=== PATIENT | male | born 1995 | race Two or more races ===

== ENCOUNTER 2020-04-21 16:55 | Emergency (ER) | payer MEDICAID, OTHER ==
--- NOTE | 2020-04-21 19:23 | EDM.PDOC ---
ED HPI GENERAL MEDICAL PROBLEM - General Chief Complaint: Upper Extremity Injury/Pain Stated Complaint: R HAND INJ Time Seen by Provider: 04/21/20 17:30 Source of Information: Reports: Patient History Limitations: Reports: No Limitations - History of Present Illness INITIAL COMMENTS - FREE TEXT/NARRATIVE: c/o R hand pain not working, playing with 4 yo daughter, she slammed and inside house door on his R hand had previous surgery and injury of wrist XR with nondisplaced fx at 5th MC base into joint without displacement, need for immobilization discussed Right Wrist Pain Score (Numeric/FACES): 6 - Related Data Allergies Allergy/AdvReac Type Severity Reaction Status Date / Time amoxicillin Allergy Rash Verified 04/21/20 17:49 Penicillins Allergy Rash Verified 04/21/20 17:49 Home Meds: Home Meds Dexamethasone/Tobramycin [Tobradex Ophth Susp] 1 drop EYELF DAILY 04/21/20 [History] Erythromycin Base [Erythromycin] 1 gm TOP DAILY 04/21/20 [History] Past Medical History Musculoskeletal History: Reports: Fracture, Other (See Below) Other Musculoskeletal History: Several fractures in the right hand/wrist. Fracture in right ankle. Fractured in five spots in left foot. Back surgery 02/2020. Psychiatric History: Reports: Anxiety - Past Surgical History HEENT Surgical History: Reports: Other (See Below) Other HEENT Surgeries/Procedures: Patient had a cyst removed from left eye. GI Surgical History: Reports: Appendectomy Musculoskeletal Surgical History: Reports: Shoulder Surgery Social & Family History - Family History Family Medical History: Noncontributory - Tobacco Use Smoking Status *Q: Never Smoker - Caffeine Use Caffeine Use: Reports: Coffee - Recreational Drug Use Recreational Drug Use: No Review of Systems - Review of Systems Review Of Systems: See Below Constitutional: Reports: No Symptoms Eyes: Reports: No Symptoms Ears: Reports: No Symptoms Nose: Reports: No Symptoms Mouth/Throat: Reports: No Symptoms Respiratory: Reports: No Symptoms Cardiovascular: Reports: No Symptoms GI/Abdominal: Reports: No Symptoms Genitourinary: Reports: No Symptoms Musculoskeletal: Reports: Hand Pain Skin: Reports: No Symptoms Neurological: Reports: No Symptoms Psychiatric: Reports: No Symptoms ED EXAM, GENERAL - Physical Exam Exam: See Below Exam Limited By: No Limitations General Appearance: Alert, WD/WN, No Apparent Distress Extremities: Other (R hand with increase and 2+ tender at base of 5th MC, carpal bones NT, radius/ulna NT, no ecchymosis) Course - Vital Signs Last Recorded V/S: Last Vital Signs Temp 36.7 C 04/21/20 17:45 Pulse 90 04/21/20 17:45 Resp 16 04/21/20 17:45 BP 126/66 04/21/20 17:45 Pulse Ox 98 04/21/20 17:45 - Orders/Labs/Meds Orders: Active Orders 24 hr Category Date Time Status Hand Comp Min 3V Rt [CR] Stat Exams 04/21/20 16:57 Taken - Re-Assessments/Exams Free Text/Narrative Re-Assessment/Exam: 04/21/20 19:22 short arm splint applied, sling given splint with stockinet, webroll, padded fiberglass and Tulio x 2 (3" and 2") Departure - Departure Time of Disposition: 19:17 Disposition: Home, Self-Care 01 Condition: Good Clinical Impression: Fracture of metacarpal base of right hand, closed Qualifiers: Encounter type: initial encounter Metacarpal bone: fifth Fracture alignment: nondisplaced Qualified Code(s): S62.346A - Nondisplaced fracture of base of fifth metacarpal bone, right hand, initial encounter for closed fracture - Discharge Information *PRESCRIPTION DRUG MONITORING PROGRAM REVIEWED*: Not Applicable *COPY OF PRESCRIPTION DRUG MONITORING REPORT IN PATIENT ERIN: Not Applicable Instructions: Metacarpal Fracture, Cast or Splint Care, Adult Referrals: PCP,None [Primary Care Provider] - Additional Instructions: Keep splint clean and dry. For pain, as needed, take ibuprofen 200 mg 4 tabs 3 times a day. See orthopedic surgeon in 3 days for further recommendations. Sepsis Event Note (ED) - Evaluation Sepsis Screening Result: No Definite Risk - Focused Exam Vital Signs: Vital Signs Temp Pulse Resp BP Pulse Ox 04/21/20 17:45 36.7 C 90 16 126/66 98 - My Orders Last 24 Hours: My Active Orders 04/21/20 16:57 Hand Comp Min 3V Rt [CR] Stat - Assessment/Plan Last 24 Hours: My Active Orders 04/21/20 16:57 Hand Comp Min 3V Rt [CR] Stat
--- NOTE | 2020-04-22 10:49 | CR ---
INDICATION: Injury, pain. RIGHT HAND: Three views of the right hand were obtained 04/21/20 - no comparison. 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 It is difficult to exclude a chip fracture fragment at the ulnar styloid. Additionally at the proximal metaphysis of the fifth metacarpal there is some linear lucency which could represent hairline fracture site. This should be correlated clinically. Reexamination in 10 to 14 days should be of further diagnostic benefit in that regard. MTDD
== END 2020-04-21 19:53 | disposition home or self-care (01) ==
LOC: FB.ED 16:55
DX: S62.346A Nondisplaced fracture of base of fifth metacarpal bone, right hand, initial encounter for closed fracture (principal); Z88.1 Allergy status to other antibiotic agents; Z88.0 Allergy status to penicillin; W23.0XXA Caught, crushed, jammed, or pinched between moving objects, initial encounter
CPT/HCPCS: 29125; 73130-RT; 99282; 99283-25

== ENCOUNTER 2020-09-19 08:15 | Day surgery (SDC) | payer MEDICAID ==
[~2020-09-19 08:15] MED LIST: Lactated Ringers 1,000 ML IV SCH; Sodium Chloride 0.9% 10 ML Syringe FLUSH PRN
[2020-09-19] MEDS ORDERED: Lidocaine 2% 100 MG/5 ML Syringe IVPUSH ONE (08:16)
[2020-09-19] MEDS ORDERED: Propofol 200 MG/20 ML SDV IV ONE (08:16)
--- NOTE | 2020-09-19 09:31 | PCM.OPNOTE ---
- General Post-Op/Procedure Note Date of Surgery/Procedure: 09/19/20 Operative Procedure(s): c scope with cold forceps biopsy Findings: normal appearing terminal ileum and colonic mucosa Pre Op Diagnosis: hx of hematochezia, crampy abd pain and loose stools Post-Op Diagnosis: Same Anesthesia Technique: MAC Primary Surgeon: Jack Christiansen Anesthesia Provider: Don Moreno Pathology: random biopsies of terminal ileum, and colon take due to hx and concern for IBD Complications: None Condition: Good Free Text/Narrative:: see dictation #[id number]
[2020-09-19] MEDS ORDERED: Carboxymethylcellulose 0.5%/Glycerin 0.9% Ophth Soln 15 ML Bottle EYELF PRN (09:55)
--- NOTE | 2020-09-19 10:04 | PCM.SN.2 ---
- Free Text/Narrative Note: Upon arrival back to his room the patient c/o left eye redness [extremely red], tearing [excessive] and pain. Examined the eye and nothing is seen and he denies the feeling of "scratchy" with blinking of the eye. Does state the vision is slightly blurry. I gave him Refresh Optive Eye Drops and will monitor him. If this continues, he is to see his PCP. Don Moreno CRNA, A
--- NOTE | 2020-09-19 11:23 | OR ---
DATE OF OPERATION: 09/19/2020 SURGEON: Jack Christiansen MD PROCEDURE PERFORMED: Colonoscopy with random biopsies with cold forceps. PREOPERATIVE DIAGNOSES: Personal history of hematochezia, crampy abdominal pain, and loose stools. POSTOPERATIVE DIAGNOSES: Grossly normal colon and terminal ileum. INDICATIONS FOR PROCEDURE: This is a 25-year-old white male who was referred by Dr. Kang. The patient has a history of crampy abdominal pain with garrett blood per rectum. On exam, he was noted to have some tenderness on the left side as well as trans epigastric area of his abdominal exam, and his history appeared to be consistent with a possible early onset of inflammatory bowel disease. As a result, he was offered and accepted colonoscopy. DESCRIPTION OF OPERATION: After an excellent IV sedation was administered, digital rectal exam was performed. No marked abnormality was noted. The flexible colonoscope was inserted and advanced to the cecum. The prep was excellent. The terminal ileum was intubated with the scope and advanced an additional 3-4 cm. The following findings were noted. Terminal ileum, unremarkable. Several random biopsies were taken with cold biopsy forceps. Ascending colon, unremarkable. Random biopsies were taken. Transverse colon, unremarkable. Random biopsies were taken. Descending colon, unremarkable. Random biopsies were taken. Sigmoid and rectum, unremarkable. Random biopsies were taken. On retroflexing the scope, there was really no evidence to suggest any significant hemorrhoidal disease. The patient tolerated the procedure well, was returned to recovery room in good condition. Results will be sent to him via letter. /[id number] /KELIL
== END 2020-09-19 10:26 | disposition home or self-care (01) ==
LOC: FB.SDS 08:15
PROVIDERS: ATTEND Surgery
DX: K92.1 Melena (principal); R19.7 Diarrhea, unspecified; F41.9 Anxiety disorder, unspecified; R10.9 Unspecified abdominal pain; Z79.899 Other long term (current) drug therapy; Z88.0 Allergy status to penicillin; Z88.1 Allergy status to other antibiotic agents; Z98.1 Arthrodesis status; Z90.49 Acquired absence of other specified parts of digestive tract; Z98.890 Other specified postprocedural states
CPT/HCPCS: 00811-QZ; A9270-GY; J2001; J2704; J7120

== ENCOUNTER 2021-02-16 15:42 | Emergency (ER) | payer MEDICAID ==
[2021-02-16] MEDS ORDERED: Ondansetron 4 MG/2 ML SDV IVPUSH ONE (16:01)
[2021-02-16] MEDS ORDERED: Iopamidol 755 Mg/ML 100 ML Bottle IV ONE (16:03)
--- NOTE | 2021-02-16 16:10 | EDM.PDOC ---
ED HPI GENERAL MEDICAL PROBLEM - General Chief Complaint: Abdominal Pain Stated Complaint: POST SURGICAL COMPLICATIONS Time Seen by Provider: 02/16/21 16:02 Source of Information: Reports: Patient History Limitations: Reports: No Limitations - History of Present Illness INITIAL COMMENTS - FREE TEXT/NARRATIVE: Patient is s/p elective left inguinal hernia repair on 02/14/21 at [facility] (Dr. Cowan). Pain has not been controlled with Toradol and [facility] 5/325, and he believes it is worsening. Patient was only able to sleep three hours last night. The pain is exacerbated with walking. Approximately two hours ago, he developed a twisting sensation in his mid abdomen and now feel abdominal pressure. He endorses nausea, but no vomiting. He has had flatus and been having BMs. Patient called nurse online who advised him to be evaluated in the ED. Onset: Gradual Duration: Day(s): (2), Getting Worse Location: Reports: Abdomen Severity: Moderate Left Upper Groin Pain Score (Numeric/FACES): 7 - Related Data Allergies Allergy/AdvReac Type Severity Reaction Status Date / Time amoxicillin Allergy Rash Verified 02/16/21 15:58 Penicillins Allergy Rash Verified 02/16/21 15:58 fentanyl AdvReac Mild Other Verified 02/16/21 16:51 Home Meds: Home Meds Hydrocodone/Acetaminophen [Lorcet Plus] 1 - 2 tab PO Q6HR PRN 02/16/21 [History] Ibuprofen [Ibu] 400 mg PO ASDIRECTED PRN 02/16/21 [History] Ketorolac [Toradol] 10 mg PO ASDIRECTED PRN 02/16/21 [History] Past Medical History HEENT History: Reports: Sinusitis, Other (See Below) Other HEENT History: NASAL OBSTRUCTION, NASAL TURBINATE HYPERTROPHY Cardiovascular History: Reports: Other (See Below) Other Cardiovascular History: BILATERAL VARICOCELES Genitourinary History: Reports: Other (See Below) Other Genitourinary History: ORCHALGIA Musculoskeletal History: Reports: Arthritis, Back Pain, Chronic, Fracture, Other (See Below) Other Musculoskeletal History: Several fractures in the right hand/wrist. Fracture in right ankle. Fractured in five spots in left foot. BILATERAL SCIATICA, ARTHRALGIA OF RIGHT ACROMIOCLAVICULAR JOINT, TENDINITIS OF RIGHT ROTATOR CUFF, TEAR OF RIGHT GLENOID LABRUM, LUMBAR SPONDYLOSIS Psychiatric History: Reports: Anxiety Dermatologic History: Reports: Other (See Below) Other Dermatologic History: KELOID SCAR - Past Surgical History HEENT Surgical History: Reports: Naso-Sinus Surgery, Other (See Below) Other HEENT Surgeries/Procedures: Patient had a cyst removed from left eye. GI Surgical History: Reports: Appendectomy Musculoskeletal Surgical History: Reports: Arthroscopic Knee, Shoulder Surgery, Other (See Below) Other Musculoskeletal Surgeries/Procedures:: LUMBAR LAMINECTOMY, LUMBAR FUSION Social & Family History - Family History Family Medical History: No Pertinent Family History - Caffeine Use Caffeine Use: Reports: Coffee, Soda ED ROS GENERAL - Review of Systems Review Of Systems: Comprehensive ROS is negative, except as noted in HPI. ED EXAM, GI/ABD - Physical Exam Exam: See Below Exam Limited By: No Limitations General Appearance: Alert, WD/WN, No Apparent Distress Eyes: Bilateral: Normal Appearance Nose: Normal Inspection Throat/Mouth: No Airway Compromise Head: Atraumatic, Normocephalic Neck: Full Range of Motion Respiratory/Chest: No Respiratory Distress, Lungs Clear Cardiovascular: Regular Rate, Rhythm, No Murmur GI/Abdominal Exam: Normal Bowel Sounds, Soft, Tender (Generalized, but LLQ is most tender), Other (Incision CDI) Back Exam: Full Range of Motion Extremities: Normal Range of Motion Neurological: Alert, Normal Cognition Psychiatric: Normal Affect, Normal Mood Skin Exam: Warm, Dry, Normal Color, Other (No evidence for wound infection) Course - Vital Signs Last Recorded V/S: Last Vital Signs Temp 36.7 C 02/16/21 15:42 Pulse 97 02/16/21 17:54 Resp 18 02/16/21 17:54 BP 149/86 H 02/16/21 17:54 Pulse Ox 99 02/16/21 17:54 - Orders/Labs/Meds Orders: Active Orders 24 hr Category Date Time Status Abdomen Pelvis w Cont [CT] Stat Exams 02/16/21 16:00 Taken Sodium Chloride 0.9% [Saline Flush] Med 02/16/21 16:00 Active 10 ml FLUSH ASDIRECTED PRN Saline Lock Insert [OM.PC] Routine Oth 02/16/21 16:00 Ordered Medication Orders Sodium Chloride (Sodium Chloride 0.9% 10 Ml Syringe) 10 ml FLUSH ASDIRECTED PRN PRN Reason: Keep Vein Open Last Admin: 02/16/21 16:40 Dose: 10 ml Documented by: Admin: 02/16/21 16:20 Dose: 10 ml Documented by: EDIL Labs: Laboratory Tests 02/16/21 02/16/21 02/16/21 Range/Units 16:10 16:10 16:36 WBC 11.4 H (3.2-10.1) x10-3/uL RBC 5.09 (3.90-5.90) x10(6)uL Hgb 14.7 (12.9-17.7) g/dL Hct 44.8 (38.3-50.1) % MCV 87.9 (80.8-98.7) fL MCH 28.9 (27.0-33.3) pg MCHC 32.8 (28.7-35.3) g/dL RDW 13.0 (12.4-15.0) % Plt Count 252 (117-477) x10(3)uL MPV 8.6 (6.7-11.0) fL Neut % (Auto) 70.6 (40.3-71.8) % Lymph % (Auto) 17.9 (15.8-45.3) % Wolfe % (Auto) 10.7 (5.5-15.2) % Eos % (Auto) 0.5 (0.1-6.8) % Baso % (Auto) 0.3 (0.3-3.8) % Neut # (Auto) 8.1 H (1.7-6.9) x10-3/uL Lymph # (Auto) 2.0 (0.5-4.5) x10-3/uL Wolfe # (Auto) 1.2 (0.0-1.2) x10-3/uL Eos # (Auto) 0.1 (0.0-0.6) x10-3/uL Baso # (Auto) 0.0 (0.0-0.3) x10-3/uL Sodium 141 (135-145) mmol/L Potassium 4.3 (3.5-5.3) mmol/L Chloride 105 (100-110) mmol/L Carbon Dioxide 26 (21-32) mmol/L BUN 12 (7-18) mg/dL Creatinine 1.4 H (0.70-1.30) mg/dL Est Cr Clr Drug Dosing 82.56 mL/min Estimated GFR (MDRD) > 60 (>60) BUN/Creatinine Ratio 8.6 L (9-20) Glucose 96 (80-116) mg/dL Calcium 9.0 (8.6-10.2) mg/dL Total Bilirubin 0.5 (0.1-1.3) mg/dL AST 32 H (5-25) IU/L ALT 44 H (12-36) U/L Alkaline Phosphatase 47 L (56-112) IU/L Total Protein 8.6 H (6.0-8.0) g/dL Albumin 4.8 (3.5-5.2) g/dL Globulin 3.8 g/dL Albumin/Globulin Ratio 1.3 Urine Color Yellow (YELLOW) Urine Appearance Clear (CLEAR) Urine pH 5.0 (5.0-6.5) Ur Specific [place] 1.005 L (1.010-1.025) Urine Protein Negative (NEGATIVE) mg/dL Urine Glucose (UA) Normal (NORMAL) mg/dL Urine Ketones Negative (NEGATIVE) mg/dL Urine Occult Blood Moderate H (NEGATIVE) Urine Nitrite Negative (NEGATIVE) Urine Bilirubin Negative (NEGATIVE) Urine Urobilinogen Normal (NEGATIVE) mg/dL Ur Leukocyte Esterase Negative (NEGATIVE) Urine RBC 0-5 (0-5) Urine WBC 0-5 (0-5) Ur Squamous Epith Cells Occasional (NS,R,O) Urine Bacteria Rare H (NS) Meds: Medications Generic Name Dose Route Start Last Admin Trade Name Freq PRN Reason Stop Dose Admin Sodium Chloride 10 ml 02/16/21 16:00 02/16/21 16:40 Sodium Chloride 0.9% 10 Ml Syringe FLUSH 10 ml ASDIRECTED PRN Administration Keep Vein Open Discontinued Medications Generic Name Dose Route Start Last Admin Trade Name Freq PRN Reason Stop Dose Admin Fentanyl 50 mcg 02/16/21 16:01 02/16/21 16:32 Fentanyl 100 Mcg/2 Ml Sdv IVPUSH 02/16/21 16:02 Not Given ONETIME ONE Hydromorphone HCl 1 mg 02/16/21 16:31 02/16/21 16:38 Hydromorphone 2 Mg/Ml Sdv IVPUSH 02/16/21 16:32 1 mg ONETIME ONE Administration Iopamidol 100 ml 02/16/21 16:03 02/16/21 16:18 Iopamidol 755 Mg/Ml 100 Ml Bottle IV 02/16/21 16:04 100 ml . DIRECTED ONE Administration Ondansetron HCl 4 mg 02/16/21 16:01 02/16/21 16:24 Ondansetron 4 Mg/2 Ml Sdv IVPUSH 02/16/21 16:02 4 mg ONETIME ONE Administration - Radiology Interpretation Free Text/Narrative:: CT Abd/Pelvis w/ IV contrast: Impression: 1. Postsurgical changes of left inguinal region with mild soft tissue stranding soft tissue cast there is no abscess/large hematoma or organized fluid collections. 2. Fluid-filled colon and small bowel could be related to gastroenteritis or post surgical ileus. No obstruction. Dictated by Jodi Joya MD @ 02/16/2021 5:20:18 PM - Re-Assessments/Exams Free Text/Narrative Re-Assessment/Exam: 02/16/21 17:42 Pain improved after Dilaudid 1mg IV. 02/16/21 18:01 Patient care discussed with Dr. Corey ([facility]), recommends decreasing use of Narcotic. Take Tylenol instead. Departure - Departure Time of Disposition: 18:02 Disposition: Home, Self-Care 01 Condition: Good Clinical Impression: Postoperative ileus - Discharge Information *PRESCRIPTION DRUG MONITORING PROGRAM REVIEWED*: No *COPY OF PRESCRIPTION DRUG MONITORING REPORT IN PATIENT ERIN: Not Applicable Instructions: Ileus Referrals: Shashi Cowan MD [Ordering Only Provider] - 2 Days Forms: ED Department Discharge Additional Instructions: Avoid narcotic pain medication. Take OTC Tylenol or Ibuprofen. Follow up with your surgeon in 2 days. Return to the ER if symptoms worsen. Sepsis Event Note (ED) - Focused Exam Vital Signs: Vital Signs Temp Pulse Resp BP Pulse Ox 02/16/21 17:54 97 18 149/86 H 99 02/16/21 15:42 36.7 C 114 H 20 143/101 H 100 - My Orders Last 24 Hours: My Active Orders 02/16/21 16:00 Abdomen Pelvis w Cont [CT] Stat Sodium Chloride 0.9% [Saline Flush] 10 ml FLUSH ASDIRECTED PRN Saline Lock Insert [OM.PC] Routine - Assessment/Plan Last 24 Hours: My Active Orders 02/16/21 16:00 Abdomen Pelvis w Cont [CT] Stat Sodium Chloride 0.9% [Saline Flush] 10 ml FLUSH ASDIRECTED PRN Saline Lock Insert [OM.PC] Routine
[2021-02-16] MEDS: Sodium Chloride 0.9% 10 ML Syringe FLUSH PRN ×2 (16:20→16:40)
[2021-02-16] MEDS: fentaNYL 100 MCG/2 ML SDV IVPUSH ONE ×2 (16:22→16:32)
[2021-02-16] MEDS ORDERED: HYDROmorphone 2 MG/ML SDV IVPUSH ONE (16:31)
== END 2021-02-16 18:20 | disposition home or self-care (01) ==
LOC: FB.ED 15:42
DX: K91.30 Postprocedural intestinal obstruction, unspecified as to partial versus complete (principal); Z88.0 Allergy status to penicillin; Z88.8 Allergy status to other drugs, medicaments and biological substances
CPT/HCPCS: 36415; 74177; 80053; 81001; 85025; 96374; 96375; 99284-25; J1170; J2405; J3010; Q9967

== ENCOUNTER 2022-01-15 06:24 | Day surgery (SDC) | payer BC ==
[~2022-01-15 06:24] MED LIST changes: -Lactated Ringers 1,000 ML IV SCH
[2022-01-15] MEDS ORDERED: Propofol 200 MG/20 ML SDV IV ONE (06:25)
[2022-01-15] MEDS ORDERED: Lidocaine 2% 100 MG/5 ML Syringe IVPUSH ONE (06:25)
[2022-01-15] MEDS ORDERED: Midazolam 1 MG/ML 2 ML SDV IV ONE (06:25)
[2022-01-15] MEDS: Lactated Ringers 1,000 ML IV SCH (07:20)
== END 2022-01-15 09:10 | disposition home or self-care (01) ==
LOC: FB.SDS 06:24
PROVIDERS: ATTEND Surgery
DX: K29.60 Other gastritis without bleeding (principal); F41.9 Anxiety disorder, unspecified; Z90.49 Acquired absence of other specified parts of digestive tract; Z79.899 Other long term (current) drug therapy; Z88.0 Allergy status to penicillin; Z88.8 Allergy status to other drugs, medicaments and biological substances; Z87.891 Personal history of nicotine dependence; Z98.890 Other specified postprocedural states
CPT/HCPCS: 00731-QZ; 88305; 88342; J2250; J2704; J7120